=== PATIENT | male | born 1955 | race Caucasian/White ===

== ENCOUNTER → 2024-03-03 13:10 | Outpatient (REF) | payer MEDICARE, SELFPAY ==
[2024-03-03 13:44] LABS: % Eosinophils 3.9 % (0-6); % Immature Granulocytes 0.1 % (0-0.5); % Lymphocytes 14.7 % (20.5-51.1); % Neutrophils 72.3 % (42.2-75.2); Absolute Basophils 0.1 10^3/uL (0-0.2); Absolute Eosinophils 0.3 10^3/uL (0-0.7); Absolute Lymphocytes 1.2 10^3/uL (1.2-3.4); Absolute Monocytes 0.7 10^3/uL (0.1-0.6); Absolute Neutrophils 6.1 10^3/uL (1.4-6.5); Hematocrit 45.9 % (39.0-52.0); Hemoglobin 15.2 g/dL (13.0-18.0); Mean Corp Hgb Conc. 33.1 g/dL (33.0-37.0); Mean Corpuscular Hgb 32.2 pg (27.0-31.0); Mean Corpuscular Volume 97.2 fL (80.0-94.0); Mean Platelet Volume 9.1 fL (7.4-10.4); Nucleated Red Blood Cells % 0 % (-); Platelet Count 301 10^3/uL (130-400); Red Blood Cell Count 4.72 10^6/uL (4.70-6.10); Red Cell Dist. Width 12.9 % (11.5-14.5); White Blood Cell Count 8.4 10^3/uL (4.8-10.8)
[2024-03-03 13:53] LABS: Blood Urea Nitrogen 16 mg/dl (9-20); Calcium 9.9 mg/dl (8.4-10.2); Carbon Dioxide 29 mmol/L (22-30); Chloride 104 mmol/L (98-107); Glucose 113 mg/dl (70-99); Potassium 4.3 mmol/L (3.5-5.1); Sodium 140 mmol/L (135-145)
== END ==
LOC: REG 13:10
PROVIDERS: ATTENDING PHYSICIAN Nurse Practitioner; FAMILY PHYSICIAN Family Medicine
DX: I48.91 Unspecified atrial fibrillation (principal); I50.32 Chronic diastolic (congestive) heart failure; I48.0 Paroxysmal atrial fibrillation; R06.02 Shortness of breath; N18.31 Chronic kidney disease, stage 3a
CPT/HCPCS: 36415; 71046; 80048; 85025

== ENCOUNTER → 2024-03-10 10:10 | Outpatient (REF) | payer MEDICARE, SELFPAY | LOC: HWRCS 10:10 | PROVIDERS: ATTENDING PHYSICIAN Nurse Practitioner; FAMILY PHYSICIAN Family Medicine | DX: I48.91 Unspecified atrial fibrillation (principal); I50.32 Chronic diastolic (congestive) heart failure; I48.0 Paroxysmal atrial fibrillation; R06.02 Shortness of breath; N18.31 Chronic kidney disease, stage 3a | CPT/HCPCS: 93306 ==

== ENCOUNTER 2025-08-03 03:08 | Inpatient (IN) | payer MEDICARE, SELFPAY ==
[2025-08-02 17:40] VITALS: BP 119/80
[2025-08-02 18:05] VITALS: BMI 35.1
--- NOTE | 2025-08-02 18:27 | ED.GENMED ---
History of Present Illness
<Javier Pruett PA-C - Last Filed: 08/03/25 06:46>
General
Chief Complaint: Skin Problem
Time Seen by Provider: 08/02/25 18:22
History of Present Illness
History of Present Illness:
70-year-old male with history of A-fib on Eliquis, CHF, hypertension, hyperlipidemia, and stage III CKD presents to the emergency department for evaluation of a right thigh abscess. Has been ongoing for the past several days but he also reports
diffuse right hip pain as well. He underwent right total hip arthroplasty approximately [address] Aram Lyon, currently with [facility] orthopedics. Patient denies any fevers or chills. He denies any inciting trauma to the area. He is
on anticoagulants.
Past History
<Javier Pruett PA-C - Last Filed: 08/03/25 06:46>
Past History
ED Past Medical History: HTN, Hypercholesterolemia and Other (DVT, Neuropathy)
ED Past Surgical History: Orthopedic (Left knee replacement and Left hip replacement)
Patient has exhibited threatening behavior?: No
PSI?: No
Social History
Tobacco: Smoker (Pipe)
Alcohol: Occasional
Personal:
Living: with family
Review of Systems
<Javier Pruett PA-C - Last Filed: 08/03/25 06:46>
Review of Systems
Allergies reviewed?: Yes
All Other Systems: ROS reviewed and negative except as documented in HPI and ROS
Phy Exam
<Javier Pruett PA-C - Last Filed: 08/03/25 06:46>
Physical Exam
Physical Exam:
GEN: Well appearing, NAD, WDWN
HEENT: Oral mucosa moist, no scleral icterus
Cardiac: Regular rate
Lung: No respiratory distress, no tachypnea
MSK: Prominent erythematous/pustular abscess to the inferior aspect of the right hip incisional scar from prior arthroplasty. Passive range of motion of the right hip elicits pain
Skin: Good color, no pallor or jaundice, no rashes
Neuro: AO x3, moves all extremities freely
Psych: Calm, cooperative
Course
<Javier Pruett PA-C - Last Filed: 08/03/25 06:46>
Orders/Labs/Results
Orders:
Orders
08/02/25 18:26
CT Lower Ext W/iv Cont Rt Urgent
Comment:
Reason For Exam: R hip abscess, eval for intra-articular extension
08/02/25 18:34
CRP [C-Reactive Protein] Urgent
Complete Blood Count/With Diff Urgent
Comprehensive Metabolic Panel Urgent
ESR [Erythrocyte Sed Rate] Urgent
08/03/25 02:46
Admit/Transfer Patient As Directed
Co-Sign Provider:
Level of Care: Inpatient admission
Assign to:: Medical/Surgical
Physician / Group: Noreen
Diagnosis: Intramuscular fluid collection concerning for abscesses related to hardware
Reason for Hospitalization: hardware related fluid collection/abscess
Expected length of stay greater than two midnights?: Yes
ELOS- Estimated Length of Stay in days: 2
I certify the patient meets the requirements for IP care: Yes
PRN Pain Medication Management As Directed
May give lesser potent ordered pain med per pt: Yes
preference::
Protocol:: Medication orders for pain may be administered in a
manner that supports deferring to patient preference
when the pt is:
- Requesting an ordered lesser potent pain medication.
Least to most potent pain medications are defined
as: acetaminophen < NSAID < tramadol < opioids
(morphine, oxycodone, hydromorphone).
- Requesting a lesser dose of the same medication IF
ORDERED.
- Requesting a less intrusive route of administration
if both routes are prescribed by the provider (PO <
IV).
08/03/25 02:48
Code Status As Directed
Resuscitation Status: Full Code
08/03/25 03:47
Acetaminophen [Tylenol] 650 mg PO Q4HPRN PRN
Bisacodyl [Dulcolax] 10 mg RECTAL [id number] PRN
Docusate W/Senna [Senokot-S] 1 tablet PO BIDPRN PRN
HYDROmorphone [Dilaudid] 0.5 mg IV Q4HPRN PRN
Ondansetron Injectable [Zofran] 4 mg IV Q6HPRN PRN
Oxycodone [Roxicodone] 5 mg PO Q4HPRN PRN
Polyethylene Glycol Powder [Miralax] 17 grams PO DAILYPRN PRN
08/03/25 03:47
VTE Contraindication Routine
VTE Mechanical Device Contraindication: Medical Contraindication
Pharmocologic Contraindication: Medical Contraindication
Activity As Directed
Activity Level: With Assistance
Vital Signs As Directed
Frequency: Per unit guidelines
08/03/25 05:51
Basic Metabolic Panel IN AM
Complete Blood Count/No Diff IN AM
Magnesium IN AM
08/03/25 Breakfast
NPO
Allow oral meds: Yes
Allow clear liquids: Sips of Clears
08/03/25 08:00
Magnesium Oxide 200 mg PO DAILY
Pantoprazole [Protonix] 40 mg PO DAILY
08/03/25 18:00
Atorvastatin [Lipitor] 10 mg PO QPM
08/03/25 20:00
Apixaban [Eliquis] 5 mg PO BID
08/03/25 22:00
Melatonin 10 mg PO HS
Abnormal Lab Results
08/02/25
18:34
RBC 4.45 L 10^6/uL
(4.70-6.10)
Absolute Neuts (auto) 8.4 H 10^3/uL
(1.4-6.5)
Absolute Lymphs (auto) 0.7 L 10^3/uL
(1.2-3.4)
Absolute Monos (auto) 0.7 H 10^3/uL
(0.1-0.6)
Neutrophils % 83.8 H %
(42.2-75.2)
Lymphocytes % 7.2 L %
(20.5-51.1)
ESR 55 H mm/hour
(0-20)
Glucose 109 H mg/dl
(70-99)
C-Reactive Protein 59.00 H mg/L
(0.0-10.00)
08/02/25 18:34
08/02/25 18:34
Vital Signs
Initial and Last Documented VS:
Initial Vital Signs
Temp Pulse Resp BP Pulse Ox
99.5 F 89 16 119/80 96
08/02/25 17:40 08/02/25 17:40 08/02/25 17:40 08/02/25 17:40 08/02/25 17:40
Last Documented Vital Signs
Temp Pulse Resp BP Pulse Ox
98.6 F 84 16 139/68 96
08/02/25 22:42 08/02/25 20:14 08/02/25 17:40 08/03/25 05:00 08/03/25 05:45
<Ralph Juarez MD - Last Filed: 08/02/25 20:05>
Orders/Labs/Results
Orders:
Orders
08/02/25 18:26
CT Lower Ext W/iv Cont Rt Urgent
Comment:
Reason For Exam: R hip abscess, eval for intra-articular extension
08/02/25 18:34
CRP [C-Reactive Protein] Urgent
Complete Blood Count/With Diff Urgent
Comprehensive Metabolic Panel Urgent
ESR [Erythrocyte Sed Rate] Urgent
08/03/25 02:46
Admit/Transfer Patient As Directed
Co-Sign Provider:
Level of Care: Inpatient admission
Assign to:: Medical/Surgical
Physician / Group: Noreen
Diagnosis: Intramuscular fluid collection concerning for abscesses related to hardware
Reason for Hospitalization: hardware related fluid collection/abscess
Expected length of stay greater than two midnights?: Yes
ELOS- Estimated Length of Stay in days: 2
I certify the patient meets the requirements for IP care: Yes
PRN Pain Medication Management As Directed
May give lesser potent ordered pain med per pt: Yes
preference::
Protocol:: Medication orders for pain may be administered in a
manner that supports deferring to patient preference
when the pt is:
- Requesting an ordered lesser potent pain medication.
Least to most potent pain medications are defined
as: acetaminophen < NSAID < tramadol < opioids
(morphine, oxycodone, hydromorphone).
- Requesting a lesser dose of the same medication IF
ORDERED.
- Requesting a less intrusive route of administration
if both routes are prescribed by the provider (PO <
IV).
08/03/25 02:48
Code Status As Directed
Resuscitation Status: Full Code
08/03/25 03:47
Acetaminophen [Tylenol] 650 mg PO Q4HPRN PRN
Bisacodyl [Dulcolax] 10 mg RECTAL [id number] PRN
Docusate W/Senna [Senokot-S] 1 tablet PO BIDPRN PRN
HYDROmorphone [Dilaudid] 0.5 mg IV Q4HPRN PRN
Ondansetron Injectable [Zofran] 4 mg IV Q6HPRN PRN
Oxycodone [Roxicodone] 5 mg PO Q4HPRN PRN
Polyethylene Glycol Powder [Miralax] 17 grams PO DAILYPRN PRN
08/03/25 03:47
VTE Contraindication Routine
VTE Mechanical Device Contraindication: Medical Contraindication
Pharmocologic Contraindication: Medical Contraindication
Activity As Directed
Activity Level: With Assistance
Vital Signs As Directed
Frequency: Per unit guidelines
08/03/25 05:51
Basic Metabolic Panel IN AM
Complete Blood Count/No Diff IN AM
Magnesium IN AM
08/03/25 Breakfast
NPO
Allow oral meds: Yes
Allow clear liquids: Sips of Clears
08/03/25 08:00
Magnesium Oxide 200 mg PO DAILY
Pantoprazole [Protonix] 40 mg PO DAILY
08/03/25 18:00
Atorvastatin [Lipitor] 10 mg PO QPM
08/03/25 20:00
Apixaban [Eliquis] 5 mg PO BID
08/03/25 22:00
Melatonin 10 mg PO HS
Abnormal Lab Results
08/02/25
18:34
RBC 4.45 L 10^6/uL
(4.70-6.10)
Absolute Neuts (auto) 8.4 H 10^3/uL
(1.4-6.5)
Absolute Lymphs (auto) 0.7 L 10^3/uL
(1.2-3.4)
Absolute Monos (auto) 0.7 H 10^3/uL
(0.1-0.6)
Neutrophils % 83.8 H %
(42.2-75.2)
Lymphocytes % 7.2 L %
(20.5-51.1)
ESR 55 H mm/hour
(0-20)
Glucose 109 H mg/dl
(70-99)
C-Reactive Protein 59.00 H mg/L
(0.0-10.00)
08/02/25 18:34
08/02/25 18:34
Vital Signs
Initial and Last Documented VS:
Initial Vital Signs
Temp Pulse Resp BP Pulse Ox
99.5 F 89 16 119/80 96
08/02/25 17:40 08/02/25 17:40 08/02/25 17:40 08/02/25 17:40 08/02/25 17:40
Last Documented Vital Signs
Temp Pulse Resp BP Pulse Ox
98.6 F 84 16 139/68 96
08/02/25 22:42 08/02/25 20:14 08/02/25 17:40 08/03/25 05:00 08/03/25 05:45
<ANDREA Garcia - Last Filed: 08/02/25 23:30>
Orders/Labs/Results
Orders:
Orders
08/02/25 18:26
CT Lower Ext W/iv Cont Rt Urgent
Comment:
Reason For Exam: R hip abscess, eval for intra-articular extension
08/02/25 18:34
CRP [C-Reactive Protein] Urgent
Complete Blood Count/With Diff Urgent
Comprehensive Metabolic Panel Urgent
ESR [Erythrocyte Sed Rate] Urgent
08/03/25 02:46
Admit/Transfer Patient As Directed
Co-Sign Provider:
Level of Care: Inpatient admission
Assign to:: Medical/Surgical
Physician / Group: Noreen
Diagnosis: Intramuscular fluid collection concerning for abscesses related to hardware
Reason for Hospitalization: hardware related fluid collection/abscess
Expected length of stay greater than two midnights?: Yes
ELOS- Estimated Length of Stay in days: 2
I certify the patient meets the requirements for IP care: Yes
PRN Pain Medication Management As Directed
May give lesser potent ordered pain med per pt: Yes
preference::
Protocol:: Medication orders for pain may be administered in a
manner that supports deferring to patient preference
when the pt is:
- Requesting an ordered lesser potent pain medication.
Least to most potent pain medications are defined
as: acetaminophen < NSAID < tramadol < opioids
(morphine, oxycodone, hydromorphone).
- Requesting a lesser dose of the same medication IF
ORDERED.
- Requesting a less intrusive route of administration
if both routes are prescribed by the provider (PO <
IV).
08/03/25 02:48
Code Status As Directed
Resuscitation Status: Full Code
08/03/25 03:47
Acetaminophen [Tylenol] 650 mg PO Q4HPRN PRN
Bisacodyl [Dulcolax] 10 mg RECTAL [id number] PRN
Docusate W/Senna [Senokot-S] 1 tablet PO BIDPRN PRN
HYDROmorphone [Dilaudid] 0.5 mg IV Q4HPRN PRN
Ondansetron Injectable [Zofran] 4 mg IV Q6HPRN PRN
Oxycodone [Roxicodone] 5 mg PO Q4HPRN PRN
Polyethylene Glycol Powder [Miralax] 17 grams PO DAILYPRN PRN
08/03/25 03:47
VTE Contraindication Routine
VTE Mechanical Device Contraindication: Medical Contraindication
Pharmocologic Contraindication: Medical Contraindication
Activity As Directed
Activity Level: With Assistance
Vital Signs As Directed
Frequency: Per unit guidelines
08/03/25 05:51
Basic Metabolic Panel IN AM
Complete Blood Count/No Diff IN AM
Magnesium IN AM
08/03/25 Breakfast
NPO
Allow oral meds: Yes
Allow clear liquids: Sips of Clears
08/03/25 08:00
Magnesium Oxide 200 mg PO DAILY
Pantoprazole [Protonix] 40 mg PO DAILY
08/03/25 18:00
Atorvastatin [Lipitor] 10 mg PO QPM
08/03/25 20:00
Apixaban [Eliquis] 5 mg PO BID
08/03/25 22:00
Melatonin 10 mg PO HS
Abnormal Lab Results
08/02/25
18:34
RBC 4.45 L 10^6/uL
(4.70-6.10)
Absolute Neuts (auto) 8.4 H 10^3/uL
(1.4-6.5)
Absolute Lymphs (auto) 0.7 L 10^3/uL
(1.2-3.4)
Absolute Monos (auto) 0.7 H 10^3/uL
(0.1-0.6)
Neutrophils % 83.8 H %
(42.2-75.2)
Lymphocytes % 7.2 L %
(20.5-51.1)
ESR 55 H mm/hour
(0-20)
Glucose 109 H mg/dl
(70-99)
C-Reactive Protein 59.00 H mg/L
(0.0-10.00)
08/02/25 18:34
08/02/25 18:34
Vital Signs
Initial and Last Documented VS:
Initial Vital Signs
Temp Pulse Resp BP Pulse Ox
99.5 F 89 16 119/80 96
08/02/25 17:40 08/02/25 17:40 08/02/25 17:40 08/02/25 17:40 08/02/25 17:40
Last Documented Vital Signs
Temp Pulse Resp BP Pulse Ox
98.6 F 84 16 139/68 96
08/02/25 22:42 08/02/25 20:14 08/02/25 17:40 08/03/25 05:00 08/03/25 05:45
<Javier Pruett PA-C - Last Filed: 08/03/25 06:46>
MDM/Problems Addressed
MDM/Problems Addressed:
Fortunately patient was found to have multiple intramuscular and subcutaneous fluid collections about his prosthesis. As of the procedure was performed at an outside facility under orthopedic service on-call. Hospitalist comfortable managing here
and recommends tertiary care transfer. I initiated this process first with a phone call through [facility] who feels this is not an emergent case and follow-up as an outpatient however I do not feel that this is appropriate. I discussed the
case with orthopedics at [facility] who will reach out to pt's initial surgeon, Dr Lyon, for acceptance of pt. Case signed out to [facility] [employer] pending further transfer considerations
<Javier Pruett PA-C - Last Filed: 08/03/25 06:46>
*Pulse Oximetry
SaO2: 96
Oxygen Mode of Delivery: Room air
<ANDREA Garcia - Last Filed: 08/02/25 23:30>
*Pulse Oximetry
Patient hypoxic: no
*Critical Care Note
Total Time (30-74mins, 75-104mins- exclusive of procedures): Not Applicable
<Javier Pruett PA-C - Last Filed: 08/03/25 06:46>
Update Note
Update Note:
Reviewed the case and preliminary imaging findings with orthopedic on-call for [facility] as well as [facility] orthopedics. Both feel as though this patient requires transfer to tertiary care facility due to the age of the hardware and the
complexity of the case.
<ANDREA Garcia - Last Filed: 08/02/25 23:30>
Update Note
Update Note:
Reviewed the case and preliminary imaging findings with orthopedic on-call for [facility] as well as [facility] orthopedics. Both feel as though this patient requires transfer to tertiary care facility due to the age of the hardware and the
complexity of the case.
2139: DR Patel Hospitalist from [facility]. accepts pt to general medicine floor however will not likely get a bed for the next 24 to 48 hours so we will need to admit here. I did review with hospitalist service. As discussed with
Jorge he will defer to admitting team for antibiotics.
0: WIth no possible transfer for 24-48 hrs hospitalist not comfortable excepting patient here without orthopedic guidance. This is reasonable. Discussed with ED physician will reach out to [facility] orth[facility]ics for further additional
suggestions.
0: Pt has a bed at [place] at this time to be transfered
ED Attending Note
<Javier Pruett PA-C - Last Filed: 08/03/25 06:46>
-
Portions of this chart may have been created with voice recognition software.� Occasional wrong word or��sound alike� substitutions may have occurred due to the inherent limitations of voice recognition software.
<Ralph Juarez MD - Last Filed: 08/02/25 20:05>
ED Attending Note
Patient seen and examined by attending physician: Yes
ED Attending Note:
I have seen and evaluated the patient with a [id number] encounter. I have spoken to the advance practicer provider and involved in the medical history, the physical exam, medical decision making.
Evaluation and management service: agree unless noted differently below.
Results interpretation: agree unless noted differently below.
Focused HPI: 70-year-old male with history as noted presents for evaluation of right hip pain. Patient says that over the past few weeks he has noticed a painful bump on the right lateral hip that has increased in size over the past few days very
red, swollen and painful. He says pain radiates towards the right groin. It is worse with movement of the hip. He is 20 years status post right total hip replacement in [place]. He has not noticed fever or chills or any other acute symptoms.
Physical exam: Awake and alert, nontoxic. Vital signs normal�notably afebrile. On exam of the right hip he has a large abscess on the lateral hip at the distal margin of his old surgical scar; he does have some mild pain on range of motion of the
right hip.
Medical Decision Makin-year-old male presents to the ER with a right hip abscess near prior surgical incision from 20-year-old hip replacement. He is having some pain that radiates towards the groin. Certainly he has an abscess and the
question is whether there could be an underlying septic arthritis given radiation of pain. Plan to check labs, ESR/CRP. Check CT of the hip. Reassess at the above�if no joint effusion and superficial abscess on CT can likely be I&D and discharge
but if any signs concerning for septic arthritis, should be admitted.
CT reviewed by me initially there is a large abscess in the lateral hip does appear to track rather deep into the musculature adjacent to the hardware. I think patient should be evaluated by orthopedist and likely have I&D in the OR. DUSTIN discussed
with orthopedics groups here�given joint replacement was done downtown previously they recommended transfer. His surgeon is now operating, Gonzalo, will need to transfer to [facility].
Discharge Plan
Departure
Patient Disposition: Admit
Date of Disposition: 08/02/25
Time of Disposition: 20:45
Admit to: Med/Surg
Admit to doctor: hospitalist
Presentation/result/management discussed w/ accepting MD/DO: Hospitalist
Patient with high blood pressure during this ER visit?: Yes
Condition: Fair
Covid-19: Not Applicable
Discharge Problem:
Infected prosthesis of right hip
Interventions
Interventions:
*Risk Screen - Suicide Last Done: 08/02/25 17:40
*General Assessment Last Done: 08/02/25 18:05
*Neglect/Abuse Screening Last Done: 08/02/25 17:40
*ED- Fall Risk Assessment Last Done: 08/02/25 18:05
*ED COVID-19 Vaccine History Last Done: 08/02/25 18:05
*ED Influenza Vaccine History Last Done: 08/02/25 18:05
ED-Skin Assessment Last Done: 08/02/25 18:05
[2025-08-02 18:47] LABS: Hematocrit 39.8 % (39.0-52.0); Hemoglobin 13.4 g/dL (13.0-18.0); Mean Corp Hgb Conc. 33.7 g/dL (33.0-37.0); Mean Corpuscular Volume 89.4 fL (80.0-94.0); Nucleated Red Blood Cells % 0 % (-); Platelet Count 371 10^3/uL (130-400); Red Cell Dist. Width 13.3 % (11.5-14.5)
[2025-08-02 19:14] LABS: ALT (SGPT) 12 U/L (0-50); AST (SGOT) 19 U/L (17-59); Albumin 3.9 g/dl (3.5-5.0); Alkaline Phosphatase 66 U/L (38-126); Blood Urea Nitrogen 13 mg/dl (9-20); Calcium 9.2 mg/dl (8.4-10.2); Carbon Dioxide 23 mmol/L (22-30); Chloride 104 mmol/L (98-107); Estimated Creatinine Clearance 76 ml/min; Glucose 109 mg/dl (70-99); Potassium 3.9 mmol/L (3.5-5.1); Sodium 137 mmol/L (135-145); Total Protein 6.3 g/dl (6.3-8.2); eGFR > 60.00
[2025-08-02 19:15] LABS: C-Reactive Protein 59.00 mg/L (0.0-10.00)
[2025-08-02 20:14] VITALS: BP 150/76
[2025-08-02 22:38] VITALS: BP 130/75
[2025-08-02 23:00] VITALS: BP 130/68
[2025-08-03] VITALS (7 sets, daily range): BP systolic 110–143; BP diastolic 50–77
--- NOTE | 2025-08-03 02:51 | HPS.HSE ---
Family Physician
-
Family Physician: Jensen Leavitt
Chief Complaint
-
Right hip pain and swelling
History of Present Illness
This is a 70-year-old male with past medical history significant for proximal atrial fibrillation, hyperlipidemia, CHF presents to the emergency department with ongoing swelling and pain of the right hip.
Patient is status post right total hip arthroplasty about 20 years ago. He states for the last 8 months or so is been having pain in the right hip. He had an x-ray recently and had a normal prosthetic positioning. He was recommended PT which he
did not follow-up with. However over the last 2 months he reports that he has had some swelling in the right hip with associated pain. The swelling and pain got more uncomfortable today so he came to the emergency department. He noticed notable
swelling right the right hip. He has not had any fevers or chills. He denies any lightheadedness or dizziness. He denies any drainage from the swelling in his hip.
In the emergency department he was afebrile with a Tmax of 98.6, blood pressure was 110/59 with a pulse of 84 and he was satting 92% on room air. His CBC was unremarkable stop electrolytes BUN and creatinine were in the normal range. He does have
elevated platelet measurements with a ESR of 55 and a CRP of 59.
CT of the right lower extremity shows Multiple intramuscular and subcutaneous rim-enhancing fluid collections consistent with abscesses as described above. New.
Bony changes of the intratrochanteric region possibly sequela of previous surgery versus chronic infection. Progressed.
Adjacent probable infected fluid collection along the hip joint posteriorly. New. No definitive intra-articular involvement but not excluded. Large amount metallic artifact due to hip hardware.
Medical History
Past Medical History
Past Medical History: Reports Arrhythmia (atrial fibrillation paroxysmal, s/p Cardiac Ablation 11/06/22 ) and Other
Additional Past Medical History:
HTN,
Hypercholesterolemia
DVT,
Neuropathy
Past Surgical History: Reports Other
Additional Past Surgical History:
Left knee replacement 2009
Right hip replacement 2005
L4 thru S1 Spinal Fusion 01/25
Social History
Tobacco: Smoker (pipe)
Alcohol: Occasional (2 IPAs)
Drug: Marijuana (Medical use, daily)
Personal:
Living: With Family
Family History
Family History: Not pertinent
Allergies / Home Medications
Allergies reflects when Allergies were last updated in [employer].
Home Medications with original date entered in [employer]
Allergy/Medication List:
Allergies
Allergy/AdvReac Type Severity Reaction Status Date / Time
No Known Allergies Allergy Verified 08/02/25 17:40
Home Medications
atorvastatin 10 mg tablet 10 mg PO QPM High cholesterol 01/07/16
melatonin 5 mg tablet 10 mg PO HS Sleep 06/12/20
Medical Marijuana 1 puff inhalation .12X DAILY PRN pain 09/12/22
diphenhydramine HCl 50 mg capsule 25 mg PO HS 09/12/22
multivitamin 1 tab PO DAILY Supplement 09/12/22
apixaban 5 mg tablet (Eliquis) 5 mg PO BID #60 tabs 09/16/22
furosemide 40 mg tablet 40 mg PO DAILY for weight gain or edema 11/06/22
magnesium 250 mg tablet 250 mg PO DAILY 11/06/22
omeprazole magnesium 20 mg tablet,delayed release (Prilosec OTC) 20 mg PO DAILY 11/06/22
metoprolol succinate 25 mg tablet,extended release 24 hr 25 mg PO BID 08/03/25
pregabalin 75 mg capsule 75 mg PO BID 08/03/25
Review of Systems
-
History Source: Patient
Constitutional: Reports No Symptoms
EENT: Reports No Symptoms
Respiratory: Reports No Symptoms
Cardiac: Reports No Symptoms
Abdomen/GI: Reports No Symptoms
: Reports No Symptoms
Musculoskeletal: Reports Joint Pain (Right hip)
Skin: Reports No Symptoms
Neurological: Reports No Symptoms
Endocrine: Reports No Symptoms
Hematologic/Lymphatic: Reports No Symptoms
Psych: Reports No Symptoms
Physical Exam
Vital Signs
Vital Signs
Temp Pulse Resp BP Pulse Ox
98.6 F 84 16 110/59 92
08/02/25 22:42 08/02/25 20:14 08/02/25 17:40 08/03/25 02:00 08/03/25 02:15
Physical Exam
General: Well Developed, Well Nourished, No Apparent Distress and Comfortable
HEENT: NormoCephalic, Moist mucous membranes and Atraumatic
Respiratory: Clear and Decreased Breath Sounds (at the bases)
Cardiac: S1/S2 and Irregular Rhythm
GI: Soft and Other (moderately firm)
Musculoskeletal: No Clubbing, No Cyanosis, Edema, Left Lower Extremity and Edema, Right Lower Extremity
Skin: Warm and Dry
Neuro: Awake, Alert, Oriented and AO x 3
Psych: Calm and Intact Judgment/Insight
Laboratory Results
-
08/02/25 18:34
08/02/25 18:34
Laboratory Results
Total Bilirubin 0.5 mg/dl (0.2-1.3) 08/02/25 18:34
AST 19 U/L (17-59) 08/02/25 18:34
ALT 12 U/L (0-50) 08/02/25 18:34
Alkaline Phosphatase 66 U/L (38-126) 08/02/25 18:34
Data Reviewed
-
CT Scan: Report Reviewed by me
Lab Data: Labs Reviewed by me
Old Records: Reviewed
Impression/Plan
-
IMPRESSION:
70-year-old with past medical history significant for proximal atrial fibrillation on anticoagulation, CHF, hyperlipidemia, history of left total knee replacement, total hip replacement in 2005, presents to the emergency department with right hip
pain and for evaluation of a right thigh abscess. Reports has been going on for several days. In the emergency department patient is afebrile, WBC is 10.1. Does have elevated inflammatory markers. Electrolytes BUN/creatinine were normal. He is
hemodynamically stable and otherwise well-appearing. A CT scan however shows significant changes concerning for abscess/fluid collections associated with R hip prosthesis which are thought to be subacute or chronic.
PLAN:
Periprosthetic fluid collections/abscess -case was discussed with orthopedic Dr. Lara and Dr. Ye who recommended transfer to [place] where patient's prior Ortho Dr. Culp practices. Chronic changes/abscess per the surgeons.
- admit to med/surg pending transfer to [place]
- in order for transfer to hold, signed buyback agreement
- per Brennan Baker (covering for Rob[facility]) & Dr. Lorenzo, hold off on abx
- NPO after midnight
- held eliquis in am for possible OR
- patient has a bed at [place] and awaiting transfer.
AFIB
- holding eliquis in am prior to transfer
- continue metoprolol succ 25mg bid
- ppi daily
CHF - Preserved EF at this time (echo 2023: Normal left ventricular size, wall thickness and systolic function. Estimated ejection fraction is 55-60%).
- furosemide 20mg prn weight gain, holding while npo
DVT PPX - on apixaban
Code Status - Full code
[2025-08-03 06:04] LABS: Hematocrit 38.7 % (39.0-52.0); Hemoglobin 13.0 g/dL (13.0-18.0); Mean Corp Hgb Conc. 33.6 g/dL (33.0-37.0); Mean Corpuscular Volume 90.4 fL (80.0-94.0); Platelet Count 341 10^3/uL (130-400); Red Cell Dist. Width 13.4 % (11.5-14.5)
[2025-08-03 06:31] LABS: Blood Urea Nitrogen 10 mg/dl (9-20); Calcium 9.0 mg/dl (8.4-10.2); Carbon Dioxide 27 mmol/L (22-30); Chloride 107 mmol/L (98-107); Estimated Creatinine Clearance 76 ml/min; Glucose 107 mg/dl (70-99); Magnesium 2.1 mg/dl (1.6-2.3); Potassium 4.2 mmol/L (3.5-5.1); Sodium 138 mmol/L (135-145); eGFR > 60.00
[2025-08-03] MEDS: PROTONIX 40 MG PO (07:53)
[2025-08-03] MEDS: MAGNESIUM OXIDE 200 MG PO (07:53)
[2025-08-03] MEDS: TOPROL XL 25 MG PO (07:53)
[2025-08-03] MEDS: LYRICA 75 MG PO (07:53)
--- NOTE | 2025-08-03 09:08 | W.DCSUMMARY ---
Discharge Summary
Discharge Data
Date of Admission: 08/03/25
Date of Discharge: 08/03/25
Total time spent discharging patient (in min): 15
-
Pending Results: No
Hospital Course
Attending physician on day of discharge:
Kenyetta Bee MD
Discharge diagnosis:
Right hip periprosthetic fluid collection/abscess
Secondary diagnoses:
A-fib
CHF
HLD
Consultations:
Orthopedic surgery
Procedures:
None
Hospital course:
70M P/W right hip pain, found to have periprosthetic abscess/fluid collection. VSS and labs unremarkable, on exam, NAD, breathing comfortably. Eliquis held, patient made n.p.o. Per Ortho service, patient best served at tertiary care center.
Patient transferred to [facility] for orthopedic surgery.
Diagnostic Findings:
CT lower extremity with IV contrast right: Multiple intramuscular and subcutaneous rim-enhancing fluid collections consistent with abscesses as described above. New.
Bony changes of the intratrochanteric region possibly sequela of previous surgery versus chronic infection. Progressed.
Adjacent probable infected fluid collection along the hip joint posteriorly. New. No definitive intra-articular involvement but not excluded. Large amount metallic artifact due to hip hardware.
Mild prostate hypertrophy. Stable
Discharge disposition:
Transfer to OSH for HLOC
Discharge Plan
-
Patient Disposition: Acute Care Hospital
Discharge Orders:
Discharge Patient (As Directed); Ordered 08/03/25
Ordered By: Kenyetta Bee
Discharge Date and Time
Print Language: AMERICAN
== END 2025-08-03 09:17 | disposition short-term general hospital (02) | DRG 560 ==
LOC: ED 03:08
PROVIDERS: Physician Assistant; ADMITTING PHYSICIAN Internal Medicine; ATTENDING PHYSICIAN Internal Medicine; EMERGENCY PHYSICIAN Emergency Medicine; FAMILY PHYSICIAN Family Medicine
DX: T84.51XA Infection and inflammatory reaction due to internal right hip prosthesis, initial encounter (principal); I13.0 Hypertensive heart and chronic kidney disease with heart failure and stage 1 through stage 4 chronic kidney disease, or unspecified chronic kidney disease; L02.415 Cutaneous abscess of right lower limb; Y83.1 Surgical operation with implant of artificial internal device as the cause of abnormal reaction of the patient, or of later complication, without mention of misadventure at the time of the procedure; I48.0 Paroxysmal atrial fibrillation; E78.00 Pure hypercholesterolemia, unspecified; N18.30 Chronic kidney disease, stage 3 unspecified; I50.9 Heart failure, unspecified; N40.0 Benign prostatic hyperplasia without lower urinary tract symptoms; F17.200 Nicotine dependence, unspecified, uncomplicated; G62.9 Polyneuropathy, unspecified; Z96.652 Presence of left artificial knee joint; Z98.1 Arthrodesis status; Z79.01 Long term (current) use of anticoagulants; Z96.642 Presence of left artificial hip joint
CPT/HCPCS: 73701; 80048; 80053; 83735; 85025; 85027; 85652; 86140; 99285; Q9967